=== PATIENT | female | born 1990 | race African-American/Black ===

== ENCOUNTER 2017-09-28 19:07 | Inpatient (IN) | payer OTHER ==
[2017-09-28] MEDS ORDERED: ONDANSETRON 4 MG INJ IV (20:30)
[2017-09-28] MEDS ORDERED: NACL 0.9% 3 ML SYG IV (20:30)
[2017-09-28] MEDS: SOD CHLORIDE 0.9% 1,000 ML IV (20:53)
[2017-09-28 20:54] LABS: ADD MAN DIFF? NO
[2017-09-28 20:56] LABS: BASOPHILS % 0.5 % (0.0-2.0); EOSINOPHILS # 0.3 10^3/ul (0.0-0.5); EOSINOPHILS % 4.4 % (0.0-7.0); HEMATOCRIT 30.8 % (37.0-47.0); HEMOGLOBIN 9.8 g/dl (12.0-16.0); LYMPHOCYTES # 3.3 10^3/ul (0.8-2.9); LYMPHOCYTES % 43.8 % (15.0-51.0); MEAN CORPUSCULAR HEMOGLOBIN 28.1 pg (29.0-33.0); MEAN CORPUSCULAR HGB CONC 31.8 g/dl (32.0-37.0); MEAN CORPUSCULAR VOLUME 88.3 fl (82.0-101.0); MEAN PLATELET VOLUME 10.2 fl (7.4-10.4); MONOCYTE # 0.5 10^3/ul (0.3-0.9); MONOCYTES % 6.9 % (0.0-11.0); NEUTROPHIL # 3.3 10^3/ul (1.6-7.5); NEUTROPHILS % 44.3 % (39.0-77.0); PLATELET COUNT 375 10^3/UL (140-415); RED BLOOD COUNT 3.49 10^6/ul (4.20-5.40); RED CELL DISTRIBUTION WIDTH 13.2 % (11.5-14.5)
[2017-09-28 20:56] LABS: WHITE BLOOD COUNT 7.6 10^3/ul (4.8-10.8)
[2017-09-28 21:18] LABS: ALANINE AMINOTRANSFERASE 437 IU/L (13-69); ALBUMIN 4.1 g/dl (3.3-4.9); ALBUMIN/GLOBULIN RATIO 1.17; ALKALINE PHOSPHATASE 194 IU/L (42-121); ANION GAP 14 (8-16); ASPARTATE AMINO TRANSFERASE 145 IU/L (15-46); BILIRUBIN,INDIRECT 0.2 mg/dl (0-1.1); BILIRUBIN,TOTAL 0.2 mg/dl (0.2-1.3); BLOOD UREA NITROGEN 5 mg/dl (7-20); CALCIUM 9.4 mg/dl (8.4-10.2); CARBON DIOXIDE 26 mmol/L (21-31); CHLORIDE 105 mmol/L (97-110); CREATININE 0.88 mg/dl (0.44-1.00); GLUCOSE 78 mg/dl (70-220); LIPASE 380 U/L (23-300); POTASSIUM 4.4 mmol/L (3.5-5.1); SODIUM 141 mmol/L (135-144); TOTAL PROTEIN 7.6 g/dl (6.1-8.1)
[2017-09-28] MEDS: PIPER-TAZO 3.375 GM IV (PMX) 100 ML IVPB (23:57)
[2017-09-29] MEDS: SOD CHLORIDE 0.9% 1,000 ML IV ×6 (01:56→23:41)
[2017-09-29] MEDS: PIPER-TAZO 3.375 GM IV (PMX) 100 ML IVPB ×4 (06:02→23:40)
[2017-09-29 06:27] LABS: ADD MAN DIFF? NO
[2017-09-29 06:32] LABS: WHITE BLOOD COUNT 6.1 10^3/ul (4.8-10.8)
[2017-09-29 06:32] LABS: BASOPHILS % 0.3 % (0.0-2.0); EOSINOPHILS # 0.3 10^3/ul (0.0-0.5); EOSINOPHILS % 4.8 % (0.0-7.0); HEMATOCRIT 28.1 % (37.0-47.0); HEMOGLOBIN 8.8 g/dl (12.0-16.0); LYMPHOCYTES # 2.6 10^3/ul (0.8-2.9); LYMPHOCYTES % 42.6 % (15.0-51.0); MEAN CORPUSCULAR HEMOGLOBIN 27.4 pg (29.0-33.0); MEAN CORPUSCULAR HGB CONC 31.3 g/dl (32.0-37.0); MEAN CORPUSCULAR VOLUME 87.5 fl (82.0-101.0); MEAN PLATELET VOLUME 10.3 fl (7.4-10.4); MONOCYTE # 0.5 10^3/ul (0.3-0.9); MONOCYTES % 8.1 % (0.0-11.0); NEUTROPHIL # 2.7 10^3/ul (1.6-7.5); PLATELET COUNT 327 10^3/UL (140-415); RED BLOOD COUNT 3.21 10^6/ul (4.20-5.40); RED CELL DISTRIBUTION WIDTH 13.2 % (11.5-14.5)
[2017-09-29 06:50] LABS: INR 1.08; PROTIME 14.1 Sec (11.9-14.9); PT RATIO 1.1
[2017-09-29 07:03] LABS: ALANINE AMINOTRANSFERASE 348 IU/L (13-69); ALBUMIN 3.4 g/dl (3.3-4.9); ALKALINE PHOSPHATASE 155 IU/L (42-121); ANION GAP 10 (8-16); ASPARTATE AMINO TRANSFERASE 104 IU/L (15-46); BILIRUBIN,INDIRECT 0.2 mg/dl (0-1.1); BILIRUBIN,TOTAL 0.2 mg/dl (0.2-1.3); BLOOD UREA NITROGEN 4 mg/dl (7-20); CALCIUM 8.8 mg/dl (8.4-10.2); CARBON DIOXIDE 26 mmol/L (21-31); CHLORIDE 109 mmol/L (97-110); CHOL/HDL RATIO 6.9 RATIO; CHOLESTEROL 188 mg/dl (100-200); CREATININE 0.86 mg/dl (0.44-1.00); GLUCOSE 78 mg/dl (70-220); HDL CHOLESTEROL 27 mg/dl (33-83); LDL CHOLESTEROL,CALCULATED 135 mg/dl; MAGNESIUM 1.9 mg/dl (1.7-2.5); POTASSIUM 4.1 mmol/L (3.5-5.1); SODIUM 141 mmol/L (135-144); TOTAL PROTEIN 6.8 g/dl (6.1-8.1); TRIGLYCERIDES 128 mg/dl (0-149)
[2017-09-29 07:57] LABS: HEMOGLOBIN A1C 5.1 % (0-5.9)
[2017-09-29 10:35] LABS: ADD UMIC YES; UR ASCORBIC ACID NEGATIVE (NEGATIVE); UR BILIRUBIN (Dip) NEGATIVE (NEGATIVE); UR BLOOD (Dip) 3+ mg/dL (NEGATIVE); UR CLARITY SLIGHTLY CLOUDY (CLEAR); UR COLOR YELLOW (YELLOW); UR GLUCOSE (Dip) NEGATIVE (NEGATIVE); UR KETONES (Dip) TRACE mg/dL (NEGATIVE); UR LEUKOCYTE ESTERASE (Dip) NEGATIVE Leu/ul (NEGATIVE); UR NITRITE (Dip) NEGATIVE (NEGATIVE); UR RBC 166 /HPF (0-5); UR SPECIFIC GRAVITY (Dip) 1.011 (1.003-1.030); UR SQUAMOUS EPITHELIAL CELL FEW /HPF (FEW); UR TOTAL PROTEIN (Dip) NEGATIVE (NEGATIVE); UR UROBILINOGEN (Dip) NEGATIVE (NEGATIVE); UR WBC 10 /HPF (0-5)
[2017-09-29] MEDS ORDERED: BUPIVACAINE 0.25%/EPI (MDV) 50 ML VIAL INJ (17:45)
[2017-09-29] MEDS ORDERED: MIDAZOLAM 1 MG/ML 2 ML INJ (19:45)
[2017-09-29] MEDS ORDERED: FENTAnyl 50 MCG/ML VIAL ×2 (19:52→20:17)
[2017-09-29] MEDS ORDERED: ROPIVACAINE 0.5 % 30 ML VIAL (19:56)
[2017-09-29] MEDS ORDERED: ROCURONIUM 50 MG INJ (20:09)
[2017-09-29] MEDS ORDERED: LIDOCAINE 2% (SDV) 5 ML INJ (20:09)
[2017-09-29] MEDS ORDERED: PROPOFOL 20 ML (20:09)
[2017-09-29] MEDS ORDERED: ONDANSETRON 4 MG INJ (20:10)
[2017-09-29] MEDS ORDERED: DEXAMETHASONE 4 MG/ML 1 ML INJ (20:10)
[2017-09-29] MEDS ORDERED: SUGAMMADEX SODIUM 200 MG/2 ML VIAL IV (20:58)
[2017-09-29] MEDS ORDERED: ACETAMINOPHEN 1000MG/100ML IV 100 ML (20:58)
[2017-09-29] MEDS ORDERED: morphine 2 MG INJ IV (21:30)
[2017-09-29] MEDS ORDERED: HYDROmorphONE 1 MG/5 ML IV SYRINGE IV (21:59)
[2017-09-29] MEDS: HYDROmorphONE 0.5 MG/0.5 ML SYG IV (22:19)
[2017-09-30] MEDS: OXYCODONE/ACETAMINOPHEN (5/325) TAB PO ×2 (00:37→14:20)
[2017-09-30] MEDS: SOD CHLORIDE 0.9% 1,000 ML IV ×2 (02:56→06:20)
[2017-09-30] MEDS: HYDROmorphONE 0.5 MG/0.5 ML SYG IV ×5 (03:10→22:46)
[2017-09-30] MEDS: PIPER-TAZO 3.375 GM IV (PMX) 100 ML IVPB ×4 (06:20→23:57)
[2017-09-30 06:21] LABS: ADD MAN DIFF? NO
[2017-09-30 06:29] LABS: BASOPHILS % 0.1 % (0.0-2.0); HEMATOCRIT 29.2 % (37.0-47.0); HEMOGLOBIN 9.1 g/dl (12.0-16.0); LYMPHOCYTES # 0.9 10^3/ul (0.8-2.9); LYMPHOCYTES % 9.5 % (15.0-51.0); MEAN CORPUSCULAR HEMOGLOBIN 27.7 pg (29.0-33.0); MEAN CORPUSCULAR HGB CONC 31.2 g/dl (32.0-37.0); MEAN CORPUSCULAR VOLUME 88.8 fl (82.0-101.0); MONOCYTE # 0.2 10^3/ul (0.3-0.9); MONOCYTES % 2.1 % (0.0-11.0); NEUTROPHIL # 8.6 10^3/ul (1.6-7.5); NEUTROPHILS % 87.9 % (39.0-77.0); PLATELET COUNT 355 10^3/UL (140-415); RED BLOOD COUNT 3.29 10^6/ul (4.20-5.40); RED CELL DISTRIBUTION WIDTH 13.2 % (11.5-14.5)
[2017-09-30 06:29] LABS: WHITE BLOOD COUNT 9.7 10^3/ul (4.8-10.8)
[2017-09-30 07:02] LABS: ALANINE AMINOTRANSFERASE 350 IU/L (13-69); ALBUMIN/GLOBULIN RATIO 1.17; ALKALINE PHOSPHATASE 148 IU/L (42-121); ANION GAP 11 (8-16); ASPARTATE AMINO TRANSFERASE 142 IU/L (15-46); BILIRUBIN,INDIRECT 0.2 mg/dl (0-1.1); BILIRUBIN,TOTAL 0.2 mg/dl (0.2-1.3); BLOOD UREA NITROGEN 4 mg/dl (7-20); CALCIUM 9.3 mg/dl (8.4-10.2); CARBON DIOXIDE 26 mmol/L (21-31); CHLORIDE 108 mmol/L (97-110); GLUCOSE 160 mg/dl (70-220); POTASSIUM 4.6 mmol/L (3.5-5.1); SODIUM 140 mmol/L (135-144); TOTAL PROTEIN 7.4 g/dl (6.1-8.1)
[2017-09-30 08:02] LABS: LIPASE 217 U/L (23-300)
[2017-09-30 14:32] LABS: HAAIG REFLEX REFLEX FILED
[2017-09-30 15:28] LABS: HEPATITIS B SURFACE ANTIGEN NEGATIVE (NEGATIVE)
[2017-09-30 15:46] LABS: HEPATITIS B CORE ANTIBODY NEGATIVE (NEGATIVE); HEPATITIS C VIRAL ANTIBODY NEGATIVE (NEGATIVE)
[2017-10-01] MEDS: PIPER-TAZO 3.375 GM IV (PMX) 100 ML IVPB ×3 (05:55→18:35)
[2017-10-01 06:49] LABS: ADD MAN DIFF? NO
[2017-10-01 06:54] LABS: WHITE BLOOD COUNT 9.9 10^3/ul (4.8-10.8)
[2017-10-01 06:54] LABS: BASOPHILS % 0.4 % (0.0-2.0); EOSINOPHILS # 0.2 10^3/ul (0.0-0.5); EOSINOPHILS % 1.5 % (0.0-7.0); HEMATOCRIT 27.2 % (37.0-47.0); HEMOGLOBIN 8.5 g/dl (12.0-16.0); LYMPHOCYTES # 3.1 10^3/ul (0.8-2.9); LYMPHOCYTES % 31.1 % (15.0-51.0); MEAN CORPUSCULAR HEMOGLOBIN 28.1 pg (29.0-33.0); MEAN CORPUSCULAR HGB CONC 31.3 g/dl (32.0-37.0); MEAN CORPUSCULAR VOLUME 90.1 fl (82.0-101.0); MEAN PLATELET VOLUME 10.3 fl (7.4-10.4); MONOCYTE # 0.8 10^3/ul (0.3-0.9); MONOCYTES % 7.9 % (0.0-11.0); NEUTROPHIL # 5.8 10^3/ul (1.6-7.5); NEUTROPHILS % 58.9 % (39.0-77.0); PLATELET COUNT 304 10^3/UL (140-415); RED BLOOD COUNT 3.02 10^6/ul (4.20-5.40); RED CELL DISTRIBUTION WIDTH 13.5 % (11.5-14.5)
[2017-10-01] MEDS: HYDROmorphONE 0.5 MG/0.5 ML SYG IV ×3 (07:02→21:41)
[2017-10-01 07:20] LABS: ANION GAP 10 (8-16); BLOOD UREA NITROGEN 5 mg/dl (7-20); CALCIUM 8.8 mg/dl (8.4-10.2); CARBON DIOXIDE 25 mmol/L (21-31); CHLORIDE 108 mmol/L (97-110); CREATININE 0.95 mg/dl (0.44-1.00); GLUCOSE 102 mg/dl (70-220); POTASSIUM 3.6 mmol/L (3.5-5.1); SODIUM 139 mmol/L (135-144)
[2017-10-01] MEDS: OXYCODONE/ACETAMINOPHEN (5/325) TAB PO ×2 (08:41→16:28)
[2017-10-01] MEDS: ONDANSETRON 4 MG INJ IV ×2 (08:42→16:31)
[2017-10-01] MEDS: BISACODYL (EC) 5 MG TAB PO (12:41)
[2017-10-01] MEDS: POLYETHYLENE GLYCOL 17 GM PACKET PO (12:43)
[2017-10-01] MEDS: ACETAMINOPHEN 325 MG TAB PO (20:33)
[2017-10-01] MEDS: DOCUSATE SODIUM 100 MG CAP PO (20:33)
== END 2017-10-02 | disposition home or self-care (01) | DRG 418 ==
LOC: MS2 19:07
PROC: 0FT44ZZ Resection of Gallbladder, Percutaneous Endoscopic Approach (ICD-10-PCS; principal; 2017-09-29 19:00)
DX: K85.10 Biliary acute pancreatitis without necrosis or infection (principal); K80.12 Calculus of gallbladder with acute and chronic cholecystitis without obstruction; D64.9 Anemia, unspecified
CPT/HCPCS: 73610-RT; 76705; 80048; 80053; 80061; 81001; 83036; 83690; 83735; 84443; 84703; 85025; 85610; 85730; 86704; 86709; 86803; 87340; 88304